=== PATIENT | male | born 1995 | race Caucasian/White ===

== ENCOUNTER 2018-12-09 06:17 | Day surgery (SDC) | payer OTHER ==
[2018-12-05 09:04] VITALS: BMI 18.9
[2018-12-09] MEDS ORDERED: SUCCINYLCHOLINE CHLORIDE 200 MG/10 ML VIAL ONE (07:28)
[2018-12-09] MEDS ORDERED: PROPOFOL 20 ML ONE (07:28)
[2018-12-09] MEDS ORDERED: MIDAZOLAM HCL 2 MG/2 ML SINGLE DOSE VIAL ONE ×3 (07:28→07:49)
[2018-12-09] MEDS ORDERED: LIDOCAINE 1%/EPI 1:100000 (20 ML MULTI DOSE VIAL) ONE (07:30)
--- NOTE | 2018-12-09 07:37 | HP ---
[facility] - Chief Complaint Chief Complaint: Left shoulder mass History Source: Patient Limitations to Obtaining History: No Limitations - Past Medical History Allergies/Adverse Reactions: Allergies Allergy/AdvReac Type Severity Reaction Status Date / Time No Known Allergies Allergy Verified 12/09/18 06:45 - Current Medications Current Medications: Home Medications Medication Instructions Recorded NK [No Known Home Medication] 12/05/18 [facility] (Former[facility]) Physical Exam - Physical Examination Vital Signs: Vital Signs Period Temp Pulse Resp BP Sys/Gomez Pulse Ox Last 24 Hr 98.2 F 63 18 130/81 98 Lung: Clear to auscultation Heart: Regular rate & rhythm Abdomen: Soft Extremities: Other (Left anterior shoulder mass Approximately 7cm x 7cm Mobile ) Neurological: Alert, Oriented Satellite Impression/Plan - Impression/Plan Impression: Left shoulder mass Operative Procedure: Excision of left shoulder mass Date to be Performed: 12/09/18
[2018-12-09] MEDS ORDERED: ceFAZolin SODIUM 1 GM VIAL ONE (07:48)
[2018-12-09] MEDS ORDERED: LIDOCAINE HCL/PF 2% SDV 5ML VIAL ONE (07:51)
[2018-12-09] MEDS ORDERED: LIDOCAINE 1%/EPI 1:100000 (50 ML MULTI DOSE VIAL) NR ONE (07:56)
[2018-12-09] MEDS ORDERED: KETOROLAC TROMETHAMINE 30 MG/1 ML VIAL ONE (08:13)
--- NOTE | 2018-12-09 08:25 | OP ---
Operative Note - Note: Operative Date: 12/09/18 Pre-Operative Diagnosis: Left shoulder mass Operation: Excision of left shoulder mass- deep subcutaneous tissue and muscle. 7cm x 7cm. Multi layer closure of incision Post-Operative Diagnosis: Same as Pre-op Surgeon: Prakash Stark Anesthesia: Local, MAC Specimens Removed: Left shoulder mass Estimated Blood Loss (mls): 5 Operative Report Dictated: Yes
[2018-12-09 08:43] VITALS: TEMP 97.6
[2018-12-09] MEDS ORDERED: oxyCODONE HCL 5 MG TABLET PO PRN ×2 (09:13)
[2018-12-09] MEDS ORDERED: ONDANSETRON 4 MG/2 ML VIAL IVPUSH PRN (09:13)
[2018-12-09] MEDS ORDERED: LACTATED RINGERS SOLUTION 1,000 ML IV SCH (09:15)
[2018-12-09 09:40] VITALS: BP 122/82; PULSE 64
--- NOTE | 2018-12-09 12:02 | OP ---
DATE OF OPERATION: 12/09/2018 SURGEON: Annie Stark MD PLACE OF SERVICE: [facility]. PREOPERATIVE DIAGNOSIS: Left shoulder mass. POSTOPERATIVE DIAGNOSIS: Left shoulder mass. PROCEDURE: 1. Excision of left shoulder mass, 7 x 7 cm in size, to the subcutaneous tissue, deep tissue and muscle. 2. Multilayer closure. SPECIMEN: Left shoulder mass, 7 x 7 cm in size. ANESTHESIA: Local/MAC. ESTIMATED BLOOD LOSS: 5 mL. DRAINS: None. REASON FOR PROCEDURE: This is a 23-year-old gentleman who presents for a left shoulder mass that has been there for quite some time and growing in size. Because of this, he asked for an excision of the left shoulder mass. The risks and benefits of the procedure were explained. This included bleeding, infection, injury to surrounding structures, nerve injury, vessel injury, hematoma, seroma, recurrence of mass, CO, DVT, PE, as some of the complications. He understood and signed informed consent. DESCRIPTION OF PROCEDURE: The patient was placed supine on the operating room table. The area was prepped and draped in the usual sterile fashion. Timeout was performed. Lidocaine with epinephrine was injected in a horizontal fashion. A transverse incision was made with a 15 blade scalpel. The skin and subcutaneous tissue were dissected down to the level of the mass. The mass was circumferentially dissected and transected off its base. Copious irrigation and suction was performed until clear. A short suture was placed superior and a long suture placed laterally for marking. Hemostasis was obtained using electrocautery. The area was closed in multiple layers using 3-0 Vicryl and 4-0 Vicryl Biosyn. Sterile dressings were applied. Patient tolerated the procedure well, transferred to recovery room in stable condition. ANNIE STARK M.D. [id number]
--- NOTE | 2018-12-12 14:12 | PATH ---
Surgical Pathology Report Patient Name: EVA BEAN Med. Rec. #: [id number] /Age/Gender: 1995 (Age: 23) / M Account: [id number] Location: ON LICENSE OF [facility] AMBULATORY Taken: 12/09/2018 Received: 12/09/2018 Reported: 12/12/2018 Physicians: Prakash Stark M.D. Specimen(s) Received LEFT SHOULDER MASS Clinical History Left upper extremity lipoma Final Diagnosis SHOULDER, LEFT, MASS, EXCISION: SPINDLE CELL LIPOMA. Electronically Signed Nga Burns M.D. Gross Description Received in formalin labeled "left shoulder mass," is a 5.0 x 5.0 x 2.8 cm encapsulated soft tissue mass. The outer surface is arguelles and smooth. There is a short suture marking the superior aspect and a long suture marking the lateral aspect of the specimen, per the surgeon. There is no skin present. The specimen is inked as follows: Superior and lateral blue; medial yellow; inferior green; anterior red; deep black. The specimen is serially sectioned from medial to lateral. Sectioning reveals homogeneous pale yellow adipose tissue. Title Checker sections are submitted in 5 cassettes as follows: 1-mass with medial and lateral margins; 2-mass with superior margin; 3-mass with inferior margin; 4-mass with anterior margin; 5-mass with deep margin. /12/10/201812/10/2018
== END 2018-12-09 09:43 | disposition home or self-care (01) ==
LOC: FASU 06:17
PROVIDERS: ATTEND Surgery
PROC: 0KB60ZZ Excision of Left Shoulder Muscle, Open Approach (ICD-10-PCS; principal; 2018-12-09 07:56)
DX: D17.9 Benign lipomatous neoplasm, unspecified (principal)
CPT/HCPCS: 88305-TC; 94760